=== PATIENT | female | born 1960 | race Caucasian/White ===

== ENCOUNTER → 2016-07-23 | Outpatient (CLI) | payer OTHER ==
[~2016-07-23] MED LIST: CHLORTHALIDONE25 MG PO; COZAAR100 MG PO; CYMBALTA60 MG PO; MOBIC15 MG PO; NEURONTIN 300300 MG PO; NORCO 10-325 T1 EACH PO; PROTONIX40 MG PO; TIZANIDINE HCL4 MG PO; WELLBUTRIN XL150 MG PO; XARELTO10 MG PO
[2016-07-23 11:32] LABS: HEMOGLOBIN 13.4 gm/dl (12.3-15.3); RED BLOOD COUNT 4.5 M/UL (4.00-5.10); WHITE BLOOD COUNT 7.2 K/UL (4.5-11.0)
== END ==
LOC: OPSV2 10:30
PROVIDERS: Orthopaedic Surgery
DX: Z01.810 Encounter for preprocedural cardiovascular examination (principal); Z01.812 Encounter for preprocedural laboratory examination; Z01.818 Encounter for other preprocedural examination; M17.11 Unilateral primary osteoarthritis, right knee; I10 Essential (primary) hypertension
CPT/HCPCS: 36415; 71020; 80048; 81001; 85025; 87081; 93005

== ENCOUNTER → 2016-07-30 | Outpatient (CLI) | payer OTHER | LOC: LAB 14:27 | PROVIDERS: Orthopaedic Surgery | DX: Z01.812 Encounter for preprocedural laboratory examination (principal); M17.11 Unilateral primary osteoarthritis, right knee | CPT/HCPCS: 36415; 80048; 86850; 86900; 86901 ==

== ENCOUNTER 2016-07-31 09:17 | Day surgery (SDC) | payer OTHER ==
[~2016-07-31] VITALS: Ht 157.5 cm; Wt 94.8 kg
[2016-07-31] MEDS ORDERED: NEURONTIN 300300 MG PO (09:40)
[2016-07-31] MEDS ORDERED: CYMBALTA60 MG PO (09:41)
[2016-07-31] MEDS ORDERED: TIZANIDINE HCL4 MG PO (09:41)
[2016-07-31] MEDS ORDERED: CHLORTHALIDONE25 MG PO (09:42)
[2016-07-31] MEDS ORDERED: WELLBUTRIN XL150 MG PO (09:43)
[2016-07-31] MEDS ORDERED: PROTONIX40 MG PO (09:43)
[2016-07-31] MEDS ORDERED: COZAAR100 MG PO (09:44)
[2016-07-31] MEDS ORDERED: MOBIC15 MG PO (09:45)
[2016-08-01 05:01] LABS: HEMOGLOBIN 10.2 gm/dl (12.3-15.3); RED BLOOD COUNT 3.47 M/UL (4.00-5.10)
[2016-08-01 05:24] LABS: BUN/CREATININE RATIO 18 (0-10)
[2016-08-01] MEDS ORDERED: XARELTO10 MG PO (10:47)
[2016-08-01] MEDS ORDERED: NORCO 10-325 T1 EACH PO (10:49)
== END 2016-08-02 13:10 | disposition home or self-care (01) ==
LOC: OR 09:17 → EDSTATUS 14:45 → M/S 16:43 → OR 08-02 13:10
PROVIDERS: Orthopaedic Surgery
PROC: 0SRC0L9 Replacement of Right Knee Joint with Medial Unicondylar Synthetic Substitute, Cemented, Open Approach (ICD-10-PCS; principal; 2016-07-31 12:30)
DX: M17.11 Unilateral primary osteoarthritis, right knee (principal); G89.29 Other chronic pain; I10 Essential (primary) hypertension; K44.9 Diaphragmatic hernia without obstruction or gangrene; M19.90 Unspecified osteoarthritis, unspecified site; Z80.9 Family history of malignant neoplasm, unspecified; Z98.51 Tubal ligation status; Z79.899 Other long term (current) drug therapy; Z79.52 Long term (current) use of systemic steroids; Z79.891 Long term (current) use of opiate analgesic; Z82.49 Family history of ischemic heart disease and other diseases of the circulatory system
CPT/HCPCS: 0; 36415; 36600; 73560; 80048; 82803; 82962; 85025; 97116; 97530; 97535; C1713; J0690; J2250; J2270; J2370; J2405; J2795; J3010; J3370; J7050; J7120

== ENCOUNTER → 2016-10-08 | Outpatient (CLI) | payer OTHER | LOC: US 14:30 | DX: M79.604 Pain in right leg (principal) | CPT/HCPCS: 93971 ==

== ENCOUNTER → 2020-11-21 | Outpatient (CLI) | payer OTHER ==
[~2020-11-21] MED LIST changes: +ASPIRIN 325MG325 MG PO; +CYTOTEC200 MCG PO; +ELAVIL 50 MG TA50 MG PO; +FLEXERIL 10 MG10 MG PO; +FLONASE 0.05% N16 GM; +IBUPROFEN800 MG PO; +IRON PO; +KEFLEX CAP 500500 MG PO; +NORCO 5-325 TA1 EACH PO; +OMEPRAZOLE40 MG PO; +PERCOCET 10-321 EACH PO; +ULTRAM50 MG PO; +VITAMIN C 500500 MG PO; +VITAMIN D250000 UNIT PO; +VITAMIN D350000 UNIT PO; +VOLTAREN100 GM TP
== END ==
LOC: US 13:17
DX: M79.604 Pain in right leg (principal); M25.461 Effusion, right knee
CPT/HCPCS: 73562; 73590; 93971

== ENCOUNTER → 2021-03-26 | Outpatient (CLI) | payer OTHER ==
[~2021-03-26] MED LIST changes: +AMITRIPTYLINE H50 MG PO; +CYMBALTA30 MG PO; +FLONASE SPRAY; +HYDROCHLOROTH12.5 MG PO; +MECLIZINE HCL25 MG PO; +MELATONIN10 M2 PO; +VITAMIN D31250 MCG PO; +ZANAFLEX4 MG PO
[2021-03-26 11:42] LABS: HEMOGLOBIN 13.2 gm/dl (12.3-15.3); RED BLOOD COUNT 4.44 M/UL (4.00-5.10); WHITE BLOOD COUNT 7.3 K/UL (4.5-11.0)
[2021-03-26 12:10] LABS: BUN/CREATININE RATIO 17 (0-10)
== END ==
LOC: OPSV2 10:00 → EDSTATUS 10:00 → OPSV2 10:33
PROVIDERS: Orthopaedic Surgery
DX: Z01.818 Encounter for other preprocedural examination (principal)
CPT/HCPCS: 36415; 71046; 80048; 85027; 93005

== ENCOUNTER → 2021-04-08 | Outpatient (CLI) | payer OTHER ==
[~2021-04-08] MED LIST changes: +ELIQUIS 2.5 MG2.5 MG PO; +HYDROCODON-ACE1 EAC2 PO
== END ==
LOC: LAB 13:44
PROVIDERS: Orthopaedic Surgery
DX: Z01.812 Encounter for preprocedural laboratory examination (principal)
CPT/HCPCS: 36415; 80048; 86850; 86900; 86901

== ENCOUNTER 2021-04-09 07:38 | Day surgery (SDC) | payer OTHER ==
[~2021-04-09] VITALS: Ht 160 cm; Wt 65.8 kg
[~2021-04-09 07:38] MED LIST changes: -ELIQUIS 2.5 MG2.5 MG PO; -HYDROCODON-ACE1 EAC2 PO
[2021-04-09] MEDS ORDERED: HYDROCODON-ACE1 EAC2 PO (14:15)
[2021-04-10 07:36] LABS: HEMOGLOBIN 10.3 gm/dl (12.3-15.3); RED BLOOD COUNT 3.55 M/UL (4.00-5.10); WHITE BLOOD COUNT 11.8 K/UL (4.5-11.0)
[2021-04-10 07:53] LABS: BUN/CREATININE RATIO 19 (0-10)
[2021-04-10] MEDS ORDERED: ELIQUIS 2.5 MG2.5 MG PO (10:34)
== END 2021-04-10 12:42 | disposition home or self-care (01) ==
LOC: OR 07:38 → M/S 15:00 → OR 04-10 12:42
PROVIDERS: Orthopaedic Surgery
DX: T84.84XA Pain due to internal orthopedic prosthetic devices, implants and grafts, initial encounter (principal); T84.032A Mechanical loosening of internal right knee prosthetic joint, initial encounter; G89.18 Other acute postprocedural pain; N95.9 Unspecified menopausal and perimenopausal disorder; I10 Essential (primary) hypertension; Z79.01 Long term (current) use of anticoagulants; Z20.822 Contact with and (suspected) exposure to COVID-19; Z98.51 Tubal ligation status
CPT/HCPCS: 73560; 80048; 85025; 87070; 87205; 97110-GP-CQ; 97116-GP-CQ; 97161; 97166; 97535; C1713; C1776; J0690; J1100; J1170; J2001; J2250; J2370; J2405; J2704; J2795; J3010; J3370; J7050; J7120; U0002

== ENCOUNTER → 2021-04-17 | Outpatient (CLI) | payer OTHER ==
[~2021-04-17] MED LIST changes: +ELIQUIS 2.5 MG2.5 MG PO; +HYDROCODON-ACE1 EAC2 PO
== END ==
LOC: KOH-I 14:30
DX: R22.41 Localized swelling, mass and lump, right lower limb (principal); M79.604 Pain in right leg
CPT/HCPCS: 93971